=== PATIENT | female | born 1960 | race Caucasian/White ===

== ENCOUNTER 2023-01-01 20:30 | Emergency (ER) | payer MEDICAID, SELFPAY ==
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
--- NOTE | ~2023-01-01 | XR_ITS ---
EXAM: XR hand LT min 3V DATE: 01/01/2023 21:57 HISTORY: 5th MCP/finger pain . COMPARISON: None available. FINDINGS: Normal mineralization. Comminuted intra-articular fracture of the proximal aspect of the l eft fifth metacarpal, with 4 mm lateral and posterior displacement, and mild anterior angulation. Obl ique fracture of the proximal aspect of the left fifth proximal phalange, with mild lateral and signi ficant posterior angulation. No lytic or blastic lesion. Joint spaces are maintained. No erosion or p eriosteal change. Soft tissues within normal limits. IMPRESSION: Comminuted intra-articular and displaced fracture of the proximal aspect of the left fift h metacarpal. Oblique angulated fracture of the left fifth proximal phalange. Reviewed, dictated and finalized at location K. IMPRESSION: Comminuted intra-articular and displaced fracture of the proximal a spect of the left fifth metacarpal. Oblique angulated fracture of the left fift h proximal phalange.
[2023-01-01 20:39] VITALS: BP 132/81; PULSE 65; RESP 15; TEMP 36.7; O2SAT 100
[2023-01-01 21:29] VITALS: BP 147/87; PULSE 70; RESP 18; TEMP 36.6; O2SAT 100
[2023-01-01 21:34] VITALS: BP 147/87; PULSE 74; RESP 20
[2023-01-01 21:46] VITALS: BP 132/80; PULSE 77; RESP 22; O2SAT 96
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
[2023-01-01 22:15] VITALS: BP 117/82; PULSE 71; RESP 14; O2SAT 100
[2023-01-01 22:31] VITALS: BP 126/75; PULSE 74; RESP 17; O2SAT 100
[2023-01-01] MEDS: ACETAMINOPHEN 325 MG TABLET 650 MG PO (22:36)
[2023-01-01] MEDS: HYDROcodone/acetaminophen (*CRX) 5-325 MG TABLET 1 TAB PO (23:23)
[2023-01-02] MEDS: TETANUS,DIPHTHERIA,AC PERTUSSIS ADULT (0.5 ML) BOOSTRIX IM (00:05)
[2023-01-02 00:15] VITALS: PULSE 91; RESP 18; O2SAT 99
[2023-01-02 00:45] VITALS: PULSE 83; RESP 23; O2SAT 98
== END 2023-01-02 02:34 | disposition home or self-care (01) ==
PROVIDERS: Emergency Provider Emergency Medicine
DX: S62.397A Other fracture of fifth metacarpal bone, left hand, initial encounter for closed fracture (principal); S62.617A Displaced fracture of proximal phalanx of left little finger, initial encounter for closed fracture; S70.311A Abrasion, right thigh, initial encounter; S40.812A Abrasion of left upper arm, initial encounter; S40.811A Abrasion of right upper arm, initial encounter; Z23 Encounter for immunization; M16.11 Unilateral primary osteoarthritis, right hip; V20.59XA Other motorcycle passenger injured in collision with pedestrian or animal in traffic accident, initial encounter
CPT/HCPCS: 29125; 73130; 73502; 90471; 90715; 99284; A9270

== ENCOUNTER 2023-02-04 09:40 | Outpatient (CLI) | payer OTHER, SELFPAY ==
--- NOTE | ~2023-02-04 | XR_ITS ---
Left Hand Technique: PA, oblique, and lateral views were obtained. Clinical History: Fifth metacarpal fracture COMPARISON: 01/01/2023 Findings: Patient is status post internal fixation of fracture the base of the fifth metacarpal. 3 or thopedic pins are present. Osseous alignment appears near-anatomic.. Joint spaces are preserved. Soft tissues are unremarkable. Impression: Status post internal fixation of base of fifth metacarpal fracture, with orthopedic hardware, as abov e. Osseous alignment appears near-anatomic on the current exam. Reviewed, dictated and finalized at location . Impression: Status post internal fixation of base of fifth metacarpal fracture, with orthop edic hardware, as above. Osseous alignment appears near-anatomic on the current exam.
== END 2023-02-04 09:41 | disposition home or self-care (01) ==
PROVIDERS: Visit Provider Plastic Surgery
DX: S62.617D Displaced fracture of proximal phalanx of left little finger, subsequent encounter for fracture with routine healing (principal); S62.317D Displaced fracture of base of fifth metacarpal bone, left hand, subsequent encounter for fracture with routine healing; X58.XXXD Exposure to other specified factors, subsequent encounter
CPT/HCPCS: 73130

== ENCOUNTER 2023-02-07 10:13 | Day surgery (SDC) | payer OTHER, SELFPAY ==
[2023-02-07] VITALS (7 sets, daily range): BP systolic 105–141; BP diastolic 60–84; PULSE 60–74; RESP 15–16; TEMP 36.8; O2SAT 97–100; BMI 23.3
--- NOTE | ~2023-02-07 | XR_ITS ---
EXAMINATION: XR surgery orthopedic DATE: 02/07/2023 11:36 INDICATION: Fifth metacarpal pin removal TECHNIQUE: 3 fluoroscopic images of the left hand were obtained during procedure performed by Dr. Nahed barnett. Radiologist was not present for the imaging or procedure. The amount of fluoroscopy time used dur ing this procedure was 0.8 minutes. COMPARISON: 02/04/2023 FINDINGS: Images demonstrate removal of 3 fixation wires at the base of the fifth metacarpal with no residual r adiopaque foreign bodies. Final image demonstrates subtle residual lucency along the radial side of f racture at the base of the fifth proximal phalanx which remains in essentially anatomic alignment. IMPRESSION: 1. Fluoroscopy utilized during removal of fixation pins at the base of the left fifth metacarpal. 2. Nondisplaced fracture at the base of the fifth proximal phalanx. Reviewed, dictated and finalized at location L.
--- NOTE | 2023-02-07 08:29 | PC.NURSE ---
Report to the Outpatient Waiting Room, entrance under the green pavilion located off [facility], at time 1000 on date 02/07/23. Planned Procedure Time: 1200. Time changes happen often and if your time is changed the preop area will call you the afternoon before. - You and your visitor will be asked to self-screen and do not enter if you have any COVID symptoms. - A mask is optional within the hospital at this time. Patients may have clear liquids (water, carbonated beverages, clear teas, apple juice) until 3 hours prior to surgery with a maximum of 20 ounces. - No food from midnight until time of surgery Take the following medications with a SIP of water the morning of surgery: LEVOTHYROXINE DO NOT STOP ANY OF YOUR OTHER PRESCRIPTION MEDICATIONS PRIOR TO SURGERY ?EXCEPT THE FOLLOWING Medications to discontinue per physician: N/A - SURGERY TODAY Date to take last dose: N/A Please no make-up, nail bulgarian, hairspray, perfume, deodorant, or body powder the day of surgery. No jewelry (including any body piercings) or valuables the day of surgery, leave them at home. Please take a shower or bath the night before, or the morning of, surgery with an antibacterial soap. Wear comfortable, loose fitting clothing. - Jewelry must be removed prior to entering the operating room. Rings and piercings that are not removed may be cut off. - The hospital will not accept responsibility for valuables. - Please leave all valuables, including medications, at home the day of surgery. If you are going home after surgery, a licensed laundry route driver must drive you home. - NO public transportation without another adult if you receive anesthesia. - We recommend that an adult stay with you for 24 hours following discharge. - We also recommend that you do not drive, make important decision, drink alcoholic beverages, or take any drugs that were not prescribed by your health care provider for at least 24 hours after your discharge time. Follow any additional instructions given to you from your surgeon. If you or anyone in your household have experienced Covid symptoms in the past week, please notify your surgeon or the nurse liaison at the phone number below for possible testing. Telephone instructions given to PT - SEPIDEH SANTOS and asked if any additional questions and then verbalized understanding. Patient advised to call surgeon office or pre surgery nurse liaison [phone] if any additional questions.
--- NOTE | 2023-02-07 09:13 | WPDHPUPDATE1 ---
History and Physical Update Update Date/Time: 02/07/23 09:13 History and Physical has been reviewed, including an updated exam of the patient. There are NO changes in the patient's condition. Risks, benefits, and alternatives have been discussed and questions answered. Patient agrees to proceed with procedure.
[2023-02-07] MEDS: LACTATED RINGERS 1,000 ML 30 ML IV CONT (10:51)
[2023-02-07] MEDS: fentaNYL CITRATE INJ (*CRX) 100 MCG/2 ML VIAL 25 MCG IV PUSH ×4 (12:07→12:37)
--- NOTE | 2023-02-07 12:40 | SUR.PHASEII ---
1150 - MD Maldonado notified about dusky color of L hand. At bedside to assess. Dressing loosened by MD Maldonado. Color returned to normal color for patient. Pt. is ok to discharge per MD.
[2023-02-07] MEDS: oxyCODONE HCL (*CRX) 5 MG TAB IR PO (12:56)
--- NOTE | 2023-02-07 12:58 | W.PM.PROC2 ---
Procedure Note - Detailed Date of Procedure 02/07/23 Pre-op Diagnosis s/p ORIF Post-op Diagnosis Same Procedure Performed Planned removal of 3 fixation C wires from the left 5th metacarpal Surgeon Noah Quintero MD [employer] Anesthesia General Indications Need to pursue range of motion Findings Stable fracture sites and full passive range of motion of wrist and digits Description of Procedure The previous operative site on the left ulnar hand was marked on the patient in the holding area. She was then taken to the operating room placed supine the operating table. Time-out was held and confirmed. She was given general anesthesia. The extremity was prepped and draped in usual fashion. The prior site was marked and locally infiltrated with 1% lidocaine with epinephrine. The extremity was exsanguinated and the tourniquet inflated to 250 mmHg. Total tourniquet time 24 minutes. The incision was made as marked. Immediately beneath the incision laid the 5th extensors. These were carefully preserved. Just ulnar and volar to those was identified the 1st pin. A C-arm image was made to confirm the others pin sites. The larger pin was removed without difficulty with a needle albright.. The 2 other pins were identified with dissection through the scar. Each was removed without difficulty. Littler scissors were used to separate scar tissue over the extensor tendons. Significant release was achieved and the finger could be extended by pulling on the tendon. We were also able to flex the finger tips to the palm. And this revealed that the fingers are well aligned and there is no significant rotation deformity. The hand and fingers were somewhat edematous. We spent some time just flexing the fingers at all joints and extending and flexing the wrist as well. It appears that the patient's hand will function well and she needs to begin to use it frequently. The was irrigated and the skin and subcu closed with a running 6 0 nylon suture. A bulky bandage was applied. She was discharged from the operating stable condition. She prefers hydrocodone 5/325 as she did last time. She tolerated even though she was on a low dose of naltrexone. She is discharged with instructions in wound care and follow-up. The need to begin active and passive flexion range of motion was expressed to her in the recovery area and to her sister as well. Estimated Blood Loss 2 Tourniquet Time 24 Drains No Packing No Pathology None sent Complications No immediate complications Condition Stable Disposition PACU
== END 2023-02-07 13:37 | disposition home or self-care (01) ==
PROVIDERS: Visit Provider Plastic Surgery
PROC: (CPT 20694; principal; 2023-02-07 12:00)
DX: Z47.2 Encounter for removal of internal fixation device (principal); S62.317D Displaced fracture of base of fifth metacarpal bone, left hand, subsequent encounter for fracture with routine healing; V28.5 Motorcycle passenger injured in noncollision transport accident in traffic accident
CPT/HCPCS: 20680; 99199; A9270; J1100; J2250; J2405; J2704; J3010; J7120

== ENCOUNTER 2023-02-22 14:00 | Outpatient (RCR) | payer OTHER, SELFPAY ==
--- NOTE | 2023-01-22 14:05 | OTOPEVAL1 ---
Assessment and note entered by Paul Bowling, ALVARADOR/Adarsh, CHT Evaluation Information Assessment Status Evaluation Diagnosis s/p ORIF left 5th metacarpal base Subjective Information ORIF 01/10/23 Also underwent a closed reduction of the left 5th proximal phalanx She presents today for fabrication of a removable splint Reported Pain Level Pain Score 0: Self Report Assessment OT Clinical Summary Patient referred to outpatient hand therapy s/p left 5th metacarpal fx and left 5th proximal phalanx fracture. A custom, hand based boxer's fracture splint was fabricated today, holding the MCPs of digits IV and V in about 60 degrees of flexion. Continued skilled therapy for HEP instruction/progression, therapeutic exercise, manual therapy, and modalities to facilitate optimal functional use of the left hand. Plan of Care Interventions Therapeutic Exercise,Manual Therapy,Therapeutic Activities,Hot Pack/Cold Pack,Check Out for Orthotic/Pr,Paraffin OT Services Indicated Yes Treatment Frequency and 1x/week for 4 weeks Duration These treatments will address the objective and functional deficits as defined above. The patient will be advanced safely and appropriately in order for the patient to progress towards his/her prior level of function. Additional exercises will be introduced and as well as a comprehensive home exercise program upon discharge, if needed, ?to ensure carryover of functional gains achieved in the clinic. This treatment plan has been reviewed and agreement upon by the patient.
--- NOTE | 2023-01-22 14:05 | OPREHPOC ---
Outpatient Therapy Plan of Care This is a Multidisciplinary Plan of Care that may contain components documented by all disciplines (PT, OT, and ST.) OT Problem 1 OT Problem #1 Knowledge Deficit OT Goal 1 Goal Patient to be independent with instructed materials. Target Visit 4 OT Goal 2 Goal Patient to be compliant with splint wearing schedule. Target Visit 4 OT Problem 2 OT Problem #2 Impaired Range of Motion OT Goal 1 Goal Patient to be able to make a full fist with no gaps between the finger tips and the palm with the left hand. Target Visit 4 OT Goal 2 Goal 1. Patient to be able to make a hook fist with no gaps between the finger tips and the DPC with the left hand. Target Visit 4 OT Problem 3 OT Problem #3 Impaired Strength OT Goal 1 Goal Patient to be able to complete ham marker/pinch strengthening with yellow putty x5 minutes without increased pain. Target Visit 4
--- NOTE | 2023-02-11 11:16 | OTOPPROG ---
Assessment and note entered by Paul Bowling, ALVARADOR/Adarsh, CHT Evaluation Information Assessment Status Progress Diagnosis s/p ORIF left 5th metacarpal base Subjective Information ORIF 01/10/23, Pin removal 02/07/23 She presents today with stitches in place, incision looking great. No signs of infection. Per MD, patient to be completing ROM hourly. She has been very compliant with this. Reporting some residual tightness, swelling, and numbness. Assessment OT Clinical Summary Patient referred to outpatient hand therapy s/p left 5th metacarpal fx and left 5th proximal phalanx fracture. She had the fixation removed a few days ago, 02/07/23. She presents today for continued therapy with stiffness and weakness limiting a functional fist. Continued skilled therapy for HEP instruction/progression, therapeutic exercise, manual therapy, and modalities to facilitate optimal functional use of the left hand. Plan of Care Interventions Therapeutic Exercise,Manual Therapy,Therapeutic Activities,Hot Pack/Cold Pack,Check Out for Orthotic/Pr,Paraffin OT Services Indicated Yes Treatment Frequency and 1-2x/week for 3 weeks Duration These treatments will address the objective and functional deficits as defined above. The patient will be advanced safely and appropriately in order for the patient to progress towards his/her prior level of function. Additional exercises will be introduced and as well as a comprehensive home exercise program upon discharge, if needed, ?to ensure carryover of functional gains achieved in the clinic. This treatment plan has been reviewed and agreement upon by the patient.
--- NOTE | 2023-02-22 14:45 | OTOPDC ---
Assessment and note entered by Paul Bowling, ALVARADOR/Adarsh, CHT Evaluation Information Assessment Status Discharge Diagnosis s/p ORIF left 5th metacarpal base Subjective Information ORIF 01/10/23, Pin removal 02/07/23 Patient being re-evaluated today for discharge as this is her last appointment before she goes back home in [place]. She did get continued therapy set up with a hand therapist there. She reports she has been working diligently on her HEP and is noticing more progress with functional finger flexion. She continues to have swelling and ROM deficits that limit functional use of the hand. She does also report some numbness and tingling on the radial side of her thumb. Reported Pain Level Pain Score 0: Self Report Additional Pain Score Comments No pain at rest, just tightness . Assessment OT Clinical Summary Patient referred to outpatient hand therapy s/p left 5th metacarpal fx and left 5th proximal phalanx fracture. She had the fixation removed on 02/07/23. She presents today for a final therapy session before she travels back home. Her ROM measurements all improved and she is making excellent progress. She has been completing active and passive ROM of the fingers. Everything was reviewed today and she is set up with a CHT once she gets home. D/C OT.
== END 2023-02-25 08:42 | disposition home or self-care (01) ==
LOC: ANHOT 14:00
PROVIDERS: Visit Provider Plastic Surgery
DX: Z47.89 Encounter for other orthopedic aftercare (principal)
CPT/HCPCS: 97018; 97110; 97140; 97165; 97763; L3913